=== PATIENT | female | born 1985 | race Caucasian/White ===

== ENCOUNTER 2024-06-13 14:31 | Emergency (ER) | payer OTHER ==
[~2024-06-13] VITALS: Ht 160 cm; Wt 63.5 kg
[2024-06-13 14:34] VITALS: BP 130/73; PULSE 197; RESP 16; TEMP 98.9; O2SAT 100; O2SAT 98
[2024-06-13] MEDS ORDERED: EPIN0.3P3 IM (15:25)
[2024-06-13] MEDS: PREDNISONE 20MG TABLET PO ONE (15:29)
== END 2024-06-13 15:34 | disposition home or self-care (01) ==
LOC: ER 14:31
DX: T78.40XA Allergy, unspecified, initial encounter (principal); J45.909 Unspecified asthma, uncomplicated; Z88.6 Allergy status to analgesic agent
CPT/HCPCS: 99283; 81025; J7512